=== PATIENT | female | born 1955 | race Caucasian/White ===

== ENCOUNTER 2018-08-04 11:27 | Emergency (ER) | payer BC ==
[2018-08-04 11:37] VITALS: BP 147/79
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
== END 2018-08-04 12:40 | disposition home or self-care (01) ==
LOC: JD.ED 11:27
DX: H53.451 Other localized visual field defect, right eye (principal); E03.9 Hypothyroidism, unspecified; Z90.49 Acquired absence of other specified parts of digestive tract; Z90.710 Acquired absence of both cervix and uterus
CPT/HCPCS: 99283

== ENCOUNTER 2020-08-12 06:52 | Day surgery (SDC) | payer BC ==
[~2020-08-12 06:52] MED LIST: Lactated Ringers 1,000 ML IV SCH; Lidocaine 1%/Sod Bicarbonate in NS 8.4% 1 ML Syringe IDERM PRN; Sodium Chloride 0.9% 10 ML Syringe FLUSH PRN
[2020-08-12] MEDS ORDERED: Propofol 200 MG/20 ML SDV ONE (07:41)
[2020-08-12] MEDS ORDERED: Lidocaine 1% 6 ML ONE (07:42)
[2020-08-12] MEDS ORDERED: fentaNYL 100 MCG/2 ML SDV ONE (07:42)
--- NOTE | 2020-08-12 07:50 | PCM.PREANE ---
Preanesthetic Assessment - Procedure Proposed Procedure: EGD - Review of Systems General: No Symptoms Pulmonary: No Symptoms Cardiovascular: No Symptoms Gastrointestinal: No Symptoms Neurological: No Symptoms Other: Reports: None - Physical Assessment Vital Signs: Last Vital Signs Temp 97.5 F 08/12/20 07:05 Pulse 75 08/12/20 07:05 Resp 16 08/12/20 07:05 BP 145/81 H 08/12/20 07:05 Pulse Ox 94 L 08/12/20 07:05 Height: 1.73 m Weight: 68.946 kg ASA Class: 2 Mental Status: Alert & Oriented x3 Airway Class: Mallampati = 2 Dentition: Reports: Normal Dentition, [place](s) Thyro-Mental Finger Breadths: 3 Mouth Opening Finger Breadths: 3 ROM/Head Extension: Full Lungs: Clear to Auscultation, Normal Respiratory Effort Cardiovascular: Regular Rate, Regular Rhythm - Allergies Allergies/Adverse Reactions: Allergies Allergy/AdvReac Type Severity Reaction Status Date / Time No Known Allergies Allergy Verified 08/12/20 07:30 - Acknowledgements Anesthesia Type Planned: MAC Pt an Appropriate Candidate for the Planned Anesthesia: Yes Alternatives and Risks of Anesthesia Discussed w Pt/Guardian: Yes Pt/Guardian Understands and Agrees with Anesthesia Plan: Yes PreAnesthesia Questionnaire Musculoskeletal History: Reports: Back Pain, Chronic (LBP) Neurological History: Reports: Concussion Endocrine/Metabolic History: Reports: Hypothyroidism (He is on daily supplementation) - Past Surgical History GI Surgical History: Reports: Appendectomy Female Surgical History: Reports: Hysterectomy - HOME MEDS Home Medications: Home Meds Aspirin 81 mg PO BID 08/12/20 [History] Calc/D3/Mag/Zn/[place] [Calcium 600 MG Plus Vit D] 1 tab PO DAILY 08/12/20 [History] Cranberry 4 tab PO DAILY 08/12/20 [History] L.acidoph,Paracasei, B.lactis [Probiotic] 1 cap PO DAILY 08/12/20 [History] LORazepam [Lorazepam] 1 mg PO ASDIRECTED PRN 08/12/20 [History] Multivitamin 1 tab PO DAILY 08/12/20 [History] Prasterone (DHEA)/Calcium Carb [DHEA] 1 each PO DAILY 08/12/20 [History] Red Yeast Rice 1,200 mg PO DAILY 08/12/20 [History] Thyroid,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 [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] 30 mg PO ASDIRECTED 08/12/20 [History] Thyroid,Pork [Cartoon Designer Thyroid 120] 120 mg PO DAILY 08/12/20 [History] Ubidecarenone [Co Q-10] 200 mg PO DAILY 08/12/20 [History] proGESTerone [Progesterone] 1 pump TOP DAILY 08/12/20 [History] - CURRENT (IN HOUSE) MEDS Current Meds: Current Medications Lactated Ringer's (Ringers, Lactated) 1,000 mls @ 125 mls/hr IV ASDIRECTED [facility] Stop: 08/12/20 23:00 Last Admin: 08/12/20 07:15 Dose: 125 mls/hr Documented by: Lidocaine/Sodium Bicarbonate (Buffered Lidocaine 1% In Ns 8.4%) 0.25 ml IDERM ONETIME PRN PRN Reason: Prior to IV Start Stop: 08/12/20 23:00 Last Admin: 08/12/20 07:10 Dose: 0.25 ml Documented by: Sodium Chloride (Saline Flush) 10 ml FLUSH ASDIRECTED PRN PRN Reason: Keep Vein Open Stop: 08/12/20 23:00 Discontinued Medications Fentanyl (Sublimaze) Confirm Administered Dose 100 mcg .ROUTE .STK-MED ONE Stop: 08/12/20 07:43 Lidocaine HCl (Xylocaine-Mpf 1%) Confirm Administered Dose 6 mls @ as directed .ROUTE .STK-MED ONE Stop: 08/12/20 07:43 Propofol (Diprivan 20 Ml) Confirm Administered Dose 400 mg .ROUTE .STK-MED ONE Stop: 08/12/20 07:42
[2020-08-12] MEDS ORDERED: Metoprolol Tartrate 5 MG/5 ML SDV ONE (08:09)
--- NOTE | 2020-08-12 08:26 | PCM.PRNOTE ---
- Free Text/Narrative Note: Date: 08/12/2020 Procedure: diagnostic esophagogastroduodenoscopy Indication: chronic dysphagia with evidence of Schatzki ring, small hiatal hernia, and reflux on UGI study Endoscopist: Benitez Felix MD Findings: tortuosity of the distal esophagus with mild distal web easily traversed with scope. Question minor Cosme ulceration of cardia. No significant hiatal hernia appreciated. Normal appearance of Z line with apparent chronic inflammatory changes of the distal esophagus. Detailed Report: The patient was taken to the endoscopy suite and placed in left lateral decubitus position. A bite-block was placed, and monitored anesthesia care was initiated. Timeout was performed. The endoscope was inserted into the mouth and advanced to the duodenum. The duodenal mucosa appeared normal, a sample of mucosa from the duodenal bulb was obtained with cold forceps. The pylorus and antrum appeared normal. The incisura appeared normal, gastric body appeared normal, and on retroflexion of the scope within the stomach, there was no evidence of hiatal hernia. A minor area of erosion was noted at the cardia near the GE junction suggestive of Cosme ulceration. A biopsy was obtained near this area. A biopsy was also obtained of gastric antrum near the pylorus. The scope was then withdrawn into the esophagus. The Z-line appeared normal. The distal esophagus was somewhat tortuous, but there was no significant stenosis and the endoscope easily traversed the esophagus. There appeared to be some chronic inflammatory change of the distal esophagus. Several biopsies were obtained. Air was suctioned from the stomach, and the scope was slowly withdrawn and the remainder of the esophagus inspected carefully. No additional pathology was noted. The scope was then completely withdrawn. The patient tolerated the procedure well.
--- NOTE | 2020-08-12 08:56 | PCM48HPAN ---
Post Anesthesia Note - EVALUATION WITHIN 48HRS OF ANESTHETIC Vital Signs in Normal Range: Yes Patient Participated in Evaluation: Yes Respiratory Function Stable: Yes Airway Patent: Yes Cardiovascular Function Stable: Yes Hydration Status Stable: Yes Pain Control Satisfactory: Yes Nausea and Vomiting Control Satisfactory: Yes Mental Status Recovered: Yes Vital Signs: Last Vital Signs Temp 97.6 F 08/12/20 08:22 Pulse 70 08/12/20 08:22 Resp 20 08/12/20 08:22 BP 127/81 08/12/20 08:22 Pulse Ox 92 L 08/12/20 08:22
[2020-08-12 13:21] VITALS: BP 144/75; PULSE 60
== END 2020-08-12 09:10 | disposition home or self-care (01) ==
LOC: JD.SDS 06:52
PROVIDERS: ATTEND Surgery
DX: K29.50 Unspecified chronic gastritis without bleeding (principal); K31.89 Other diseases of stomach and duodenum; K20.0 Eosinophilic esophagitis; K22.2 Esophageal obstruction; K44.9 Diaphragmatic hernia without obstruction or gangrene; K21.9 Gastro-esophageal reflux disease without esophagitis; E78.5 Hyperlipidemia, unspecified; E03.9 Hypothyroidism, unspecified; G47.00 Insomnia, unspecified; E55.9 Vitamin D deficiency, unspecified; Z79.899 Other long term (current) drug therapy; Z79.82 Long term (current) use of aspirin; Z98.890 Other specified postprocedural states; Z90.49 Acquired absence of other specified parts of digestive tract; Z87.891 Personal history of nicotine dependence
CPT/HCPCS: 43239; J2001; J2704; J3010; J3490; J7120; 00731

== ENCOUNTER 2022-08-07 12:26 | Emergency (ER) | payer BC ==
[2022-08-07 17:18] VITALS: BP 138/72; PULSE 61
== END 2022-08-07 17:18 | disposition home or self-care (01) ==
LOC: JD.ED 12:26
DX: R51.9 Headache, unspecified (principal); E03.9 Hypothyroidism, unspecified; Z79.899 Other long term (current) drug therapy
CPT/HCPCS: 36415; 70450; 70450-26; 80053; 83735; 85025; 93005; 99284

== ENCOUNTER 2024-06-01 17:15 | Emergency (ER) | payer BC ==
[2024-06-01 19:24] LABS: BASOPHILS PERCENT AUTO 0.6 % (0.0-1.0); EOSINOPHILS ABSOLUTE AUTO 0.1 K/mm3 (0.0-0.4); EOSINOPHILS PERCENT AUTO 1.2 % (0.0-6.0); HEMOGLOBIN 14.8 gm/dl (12.0-16.0); IMMATURE GRAN ABSOLUTE AUTO 0.02 K/mm3 (0.00-0.05); IMMATURE GRAN PERCENT AUTO 0.3 % (0.0-0.4); LYMPHOCYTES ABSOLUTE AUTO 1.6 K/mm3 (1.0-4.8); LYMPHOCYTES PERCENT AUTO 24.3 % (24.0-44.0); MEAN CORPUSCULAR HEMOGLOBIN 28.9 pg (28.0-32.0); MEAN CORPUSCULAR HGB CONC 33.6 g/dl (32.0-36.0); MEAN CORPUSCULAR VOLUME 85.9 fl (83.0-99.0); MONOCYTES ABSOLUTE AUTO 0.4 K/mm3 (0.0-0.8); MONOCYTES PERCENT AUTO 6.4 % (0.0-8.0); NEUTROPHILS ABSOLUTE AUTO 4.5 K/mm3 (1.8-7.7); NEUTROPHILS PERCENT AUTO 67.2 % (41.0-71.0); PLATELET COUNT,PLT 327 K/mm3 (150-400); RED BLOOD CELL COUNT 5.12 M/mm3 (4.10-5.30); WHITE BLOOD CELL COUNT,WBC 6.72 K/mm3 (3.9-11.3)
[2024-06-01 19:46] LABS: A/G RATIO 1.4 (1-2); ALBUMIN 4.2 g/dl (3.4-5.0); ANION GAP 11.7 (5-15); BILIRUBIN TOTAL 0.6 mg/dL (0.2-1.0); BUN/CREATININE RATIO 18.8 (14-18); CALCIUM 9.5 mg/dL (8.5-10.1); CREATININE 0.8 mg/dL (0.55-1.02); EST CRCL DRUG DOSING (CG) 68.84 mL/min; POTASSIUM,K 3.7 mEq/L (3.5-5.1); PROTEIN TOTAL,TP 7.2 g/dl (6.4-8.2)
[2024-06-01 20:30] LABS: APPEARANCE,URINE CLEAR (Clear); BILIRUBIN,URINE NEGATIVE (Negative); COLOR,URINE YELLOW (Yellow); GLUCOSE,URINE NEGATIVE (Negative); KETONES,URINE NEGATIVE (Negative); LEUKOCYTE ESTERASE,URINE TRACE (Negative); NITRITE,URINE NEGATIVE (Negative); OCCULT BLOOD,URINE NEGATIVE (Negative); PH,URINE 6.5 (5.0-8.0); PROTEIN,URINE TRACE (Negative); UROBILINOGEN,URINE 0.2 (0.2-1.0)
[2024-06-01 20:41] LABS: BARBITURATE SCREEN,URINE NEGATIVE (CUTOFF=200); BENZODIAZEPINES SCREEN,URINE NEGATIVE (CUTOFF=150); BUPRENORPHINE SCREEN,URINE NEGATIVE (CUTOFF=10); METHADONE SCREEN, URINE NEGATIVE (CUTOFF=200); METHAMPHETAMINES SCREEN, URINE NEGATIVE (CUTOFF=500); OXYCODONE SCREEN,URINE NEGATIVE (CUT0FF=100); THC SCREEN,URINE 20 NG/ML NEGATIVE (CUTOFF=50)
[2024-06-01 20:44] LABS: BACTERIA,URINE NOT SEEN /hpf (FEW); EPITHELIAL CELLS,URINE 0-5 /hpf (0-5); MUCUS,URINE RARE /hpf (FEW); RBC,URINE 0-5 /hpf (0-5); WBC,URINE 0-5 /hpf (0-5)
[2024-06-01 20:47] LABS: AMPHETAMINES SCREEN, URINE NEGATIVE (CUTOFF=500)
[2024-06-01] MEDS: Iopamidol 755 Mg/ML 100 ML Bottle IVPUSH ONE (21:35)
[2024-06-01] MEDS: Losartan 50 MG Tab PO ONE (23:17)
[2024-06-01] MEDS: Clopidogrel 75 MG Tab PO ONE (23:18)
[2024-06-02 10:22] VITALS: BP 157/72; PULSE 88
== END 2024-06-02 09:57 | disposition home or self-care (01) ==
LOC: JD.ED 17:15
DX: I10 Essential (primary) hypertension (principal); I77.71 Dissection of carotid artery; E03.9 Hypothyroidism, unspecified; Z86.16 Personal history of COVID-19; Z90.49 Acquired absence of other specified parts of digestive tract; Z90.710 Acquired absence of both cervix and uterus; Z79.82 Long term (current) use of aspirin; Z79.899 Other long term (current) drug therapy; Z79.890 Hormone replacement therapy
CPT/HCPCS: 36415; 70450; 70496; 70498; 70551; 80053; 80306; 80307; 81001; 82375; 85025; 87086; 99284; A9270; Q9967